=== PATIENT | male | born 1995 | race Caucasian/White ===

== ENCOUNTER 2017-09-14 00:38 | Emergency (ER) | payer OTHER ==
[~2017-09-14] VITALS: Ht 193 cm; Wt 98.0 kg
[2017-09-14 00:40] VITALS: BP 173/93; PULSE 76; RESP 16; TEMP 98; O2SAT 99
[2017-09-14] MEDS ORDERED: ALUMINUM/MAGNESIUM/SIMETH 30 ML CUP PO ONE (01:00)
[2017-09-14] MEDS ORDERED: LIDOCAINE VISCOUS 2% SOLN 15 ML UDC SWISH-SWAL ONE (01:00)
--- NOTE | 2017-09-14 01:19 | RADRPT ---
EXAM DATE/TIME: 09/14/2017 01:03 [place] COMPARISON: No previous studies available for comparison. INDICATIONS : Patient complains of chest pain and heartburn in the center of chest. MEDICAL HISTORY : None. SURGICAL HISTORY : None. ENCOUNTER: Initial ACUITY: 1 day PAIN SCORE: 6/10 LOCATION: chest FINDINGS: PA and lateral views of the chest. The lungs are clear. Cardiomediastinal silhouette within normal li mits. No evidence of pleural effusion or pneumothorax. CONCLUSION: No acute cardiopulmonary disease identified. Gamal Mcdonald MD on September 14, 2017 at 1:15 Board Certified Radiologist. This report was verified electronically.
--- NOTE | 2017-09-14 01:56 | PD ---
HPI Chief Complaint: Chest Pain Time Seen by Provider: 00:48 Travel History International Travel<30 days: No Contact w/Intl Traveler<30days: No Traveled to known affect area: No History of Present Illness HPI Patient is a 22-year-old male who has sudden onset of right upper quadrant pain starting this AM ..it has been consistent all day long he denies nausea vomiting he denies any diarrhea he has not had a bowel movement today. He comes in with vague dull aching pain. His mother gave him an antacid to absorb and anti-gas pill it did not change his pain or help relieve his symptoms. In the ER were given missed viscous lidocaine and Maalox. Without any relief of his symptoms. Patient has not seen another doctor for this. Mother bedside had her gallbladder out at the age of 40. Patient is not diaphoretic no obvious nausea no active vomiting no signs of distress. PFSH Past Medical History Medical History: Denies Significant Hx Past Surgical History Other Surgery: Yes (WISDOM TEETH ) Social History Alcohol Use: No Tobacco Use: No Substance Use: No Allergies-Medications (Allergen,Severity, Reaction): Coded Allergies: No Known Allergies (Unverified , 09/14/17) Reported Meds & Prescriptions Reported Meds & Active Scripts Active Ibuprofen 600 Mg Tab 600 Mg PO Q6H PRN [place] (Hydrocodone-Acetaminophen) 5 Mg-325 Mg Tab 1 Tab PO Q6H PRN Cipro (Ciprofloxacin HCl) 500 Mg Tab 500 Mg PO BID Review of Systems Except as stated in HPI: all other systems reviewed are Neg Gastrointestinal: Positive: Nausea, Abdominal Pain Physical Exam Narrative GENERAL: Nontoxic nonseptic appearing patient awake alert SKIN: Warm and dry. HEAD: Atraumatic. Normocephalic. EYES: Pupils equal and round. No scleral icterus. No injection or drainage. ENT: No nasal bleeding or discharge. Mucous membranes pink and moist. NECK: Trachea midline. No JVD. CARDIOVASCULAR: Regular rate and rhythm. RESPIRATORY: No accessory muscle use. Clear to auscultation. Breath sounds equal bilaterally. GASTROINTESTINAL: Abdomen soft, right upper quadrant mild tenderness with deep percussion palpation all other area nontender, nondistended. Hepatic and splenic margins not palpable. MUSCULOSKELETAL: Extremities without clubbing, cyanosis, or edema. No obvious deformities. NEUROLOGICAL: Awake and alert. No obvious cranial nerve deficits. Motor grossly within normal limits. Five out of 5 muscle strength in the arms and legs. Normal speech. PSYCHIATRIC: Appropriate mood and affect; insight and judgment normal. Data Data Last Documented VS Vital Signs Date Time Temp Pulse Resp B/P (MAP) Pulse Ox O2 Delivery O2 Flow Rate FiO2 09/14/17 04:02 09/14/17 00:40 98.0 76 16 99 Room Air Orders Orders Lidocaine 2% Viscous (Xylocaine 2% Visco (09/14/17 01:00) Al-Mag Hy-Si 40-40-4 Mg/Ml Liq (Mag-Al P (09/14/17 01:00) Chest, Pa & Lat (09/14/17 ) Complete Blood Count With Diff (09/14/17 01:56) Comprehensive Metabolic Panel (09/14/17 01:56) Lipase (09/14/17 01:30) Pantoprazole Inj (Protonix Inj) (09/14/17 02:30) Ketorolac Inj (Toradol Inj) (09/14/17 02:30) Morphine Inj (Morphine Inj) (09/14/17 03:00) Ed Discharge Order (09/14/17 03:38) Electrocardiogram (09/14/17 00:55) Labs Laboratory Tests Test 09/14/17 01:30 White Blood Count 11.6 TH/MM3 Red Blood Count 5.29 MIL/MM3 Hemoglobin 16.0 GM/DL Hematocrit 46.6 % Mean Corpuscular Volume 88.2 FL Mean Corpuscular Hemoglobin 30.3 PG Mean Corpuscular Hemoglobin Concent 34.4 % Red Cell Distribution Width 12.7 % Platelet Count 274 TH/MM3 Mean Platelet Volume 7.0 FL Neutrophils (%) (Auto) 64.2 % Lymphocytes (%) (Auto) 28.3 % Monocytes (%) (Auto) 6.0 % Eosinophils (%) (Auto) 1.1 % Basophils (%) (Auto) 0.4 % Neutrophils # (Auto) 7.5 TH/MM3 Lymphocytes # (Auto) 3.3 TH/MM3 Monocytes # (Auto) 0.7 TH/MM3 Eosinophils # (Auto) 0.1 TH/MM3 Basophils # (Auto) 0.0 TH/MM3 CBC Comment DIFF FINAL Differential Comment Blood Urea Nitrogen 12 MG/DL Creatinine 1.14 MG/DL Random Glucose 102 MG/DL Total Protein 8.1 GM/DL Albumin 4.5 GM/DL Calcium Level 9.6 MG/DL Alkaline Phosphatase 88 U/L Aspartate Amino Transf (AST/SGOT) 25 U/L Alanine Aminotransferase (ALT/SGPT) 50 U/L Total Bilirubin 0.7 MG/DL Sodium Level 140 MEQ/L Potassium Level 3.8 MEQ/L Chloride Level 104 MEQ/L Carbon Dioxide Level 32.5 MEQ/L Anion Gap 4 MEQ/L Estimat Glomerular Filtration Rate 80 ML/MIN Lipase 116 U/L [facility] Medical Decision Making Medical Screen Exam Complete: Yes Emergency Medical Condition: Yes Differential Diagnosis Gastritis versus gallbladder disease versus pancreatitis versus is GERD versus rib pain versus costochondritis Narrative Course Bedside sonogram done by this Jinny shows 2 very large gallstones which are creating strong shadows the gallbladder is distended however without any signs of obstruction at the neck of the gallbladder. No pericholecystic fluid and his LFTs are completely normal... he has a mild elevated white count of 11.6 .. I give the patient Cipro for 7 days and the name of the surgeon for close outpt follow-up Procedures Procedure Narrative POC by this MD Bedside SOno Two large gallstones seen but no pericholic fluid negative murphys , Diagnosis Primary Impression: Gallstone Qualified Codes: K80.20 - Calculus of gallbladder without cholecystitis without obstruction Additional Impression: Abdominal pain Qualified Codes: R10.9 - Unspecified abdominal pain Referrals: Manish Christensen MD Patient Instructions: Gallstones (ED), General Instructions Scripts Ibuprofen (Ibuprofen) 600 Mg Tab 600 MG PO Q6H Y for Pain/Inflammation, #40 TAB 0 Refills Prov: Crow Lay MD 09/14/17 Hydrocodone-Acetaminophen ([place]) 5 Mg-325 Mg Tab 1 TAB PO Q6H Y for PAIN, #10 TAB 0 Refills Prov: Crow Lay MD 09/14/17 Ciprofloxacin (Cipro) 500 Mg Tab 500 MG PO BID for Infection, #14 TAB 0 Refills Prov: Crow Lay MD 09/14/17 Disposition: 01 DISCHARGE HOME Condition: Good Crow Lay MD Sep 14, 2017 01:56
[2017-09-14 02:13] LABS: AUTOMATED NEUTROPHIL # 7.5 TH/MM3 (1.8-7.7); BASOPHIL % 0.4 % (0.0-2.0); EOSINOPHIL # 0.1 TH/MM3 (0-0.4); EOSINOPHIL % 1.1 % (0.0-4.0); HEMATOCRIT 46.6 % (39.0-51.0); HEMO FLAGS DIFF FINAL; LYMPH % 28.3 % (9.0-44.0); LYMPHOCYTE # 3.3 TH/MM3 (1.0-4.8); MEAN CELL VOLUME 88.2 FL (80.0-100.0); MEAN CORPUSCULAR HEMOGLOBIN 30.3 PG (27.0-34.0); MEAN CORPUSCULAR HGB CONC 34.4 % (32.0-36.0); NEUT % 64.2 % (16.0-70.0); PLATELET COUNT 274 TH/MM3 (150-450); RED BLOOD COUNT 5.29 MIL/MM3 (4.50-5.90); RED CELL DISTRIBUTION WIDTH 12.7 % (11.6-17.2); WHITE BLOOD COUNT 11.6 TH/MM3 (4.0-11.0)
[2017-09-14] MEDS ORDERED: KETOROLAC TROMETHAMINE 30 MG/ML (IVP) VIAL IV PUSH ONE (02:30)
[2017-09-14] MEDS ORDERED: PANTOPRAZOLE SODIUM 40 MG VIAL IV PUSH ONE (02:30)
[2017-09-14 02:39] LABS: ANION GAP 4 MEQ/L (5-15); AST (GOT) 25 U/L (15-37); BICARBONATE 32.5 MEQ/L (21.0-32.0); BLOOD UREA NITROGEN 12 MG/DL (7-18); CHLORIDE 104 MEQ/L (98-107); GLOMERULAR FILTRATION RATE 80 ML/MIN (>89); POTASSIUM 3.8 MEQ/L (3.5-5.1); SODIUM (NA) 140 MEQ/L (136-145)
[2017-09-14 02:42] LABS: ALKALINE PHOSPHATASE 88 U/L (45-117); ALT (GPT) 50 U/L (12-78); TOTAL BILIRUBIN ADULT 0.7 MG/DL (0.2-1.0)
[2017-09-14] MEDS ORDERED: MORPHINE SULFATE 2 MG/ML INJ IV PUSH ONE (03:00)
[2017-09-14] MEDS ORDERED: CIPR-9 PO (03:48)
[2017-09-14] MEDS ORDERED: NORC5TAB PO (03:48)
[2017-09-14] MEDS ORDERED: IBUP-232 PO (03:51)
--- NOTE | 2017-09-15 10:07 | EKG ---
Date Performed: 09/14/2017 Time Performed: 00:55:19 PTAGE: 22 years EKG: Sinus rhythm WITH SINUS ARRHYTHMIA NORMAL ECG NO PREVIOUS TRACING DOCTOR: Keya Thomas Interpretating Date/Time 09/15/2017 10:06:52
== END 2017-09-14 04:02 | disposition home or self-care (01) ==
LOC: NEPE 00:38
DX: K80.20 Calculus of gallbladder without cholecystitis without obstruction (principal); R10.11 Right upper quadrant pain
CPT/HCPCS: 71020; 80053; 83690; 85025; 93005; 96374; 96375; 99284; C9113; J1885; J2270